=== PATIENT | female | born 1990 | race Caucasian/White ===

== ENCOUNTER 2017-01-08 13:35 | Emergency (ER) | payer MEDICAID, OTHER ==
--- NOTE | 2017-01-08 14:11 | ERPHSYRPT ---
- History of Present Illness Time Seen by Provider: 01/08/17 14:06 Source: patient Exam Limitations: no limitations Patient Subjective Stated Complaint: pt c/o vomiting since early sunday along with diarrhea. c/o abd pain in the middle of stomach. Triage Nursing Assessment: pt alert x 3. respirations even and unlabored. skin is pale warm and dry. abd is soft and tender to touch. bowel sounds present in all four quads. Physician History: The patient is a 26-year-old female with her complaining of nausea, vomiting, and diarrhea for 2 days. She has vomited at least a dozen times each day. The bowel movements are nothing but water. She is lightheaded. Her past medical history is unremarkable. Her last menstrual period was one month ago. Timing/Duration: day(s) (2) Severity: moderate Modifying Factors: Improves With: nothing Associated Symptoms: nausea, vomiting Allergies/Adverse Reactions: No Known Drug Allergies Allergy (Unverified 06/04/13 10:11) Hx Tetanus, Diphtheria Vaccination/Date Given: No Hx Influenza Vaccination/Date Given: No Hx Pneumococcal Vaccination/Date Given: No Immunizations Up to Date: Yes - Review of Systems Constitutional: Weakness Eyes: No Symptoms Ears, Nose, & Throat: No Symptoms Respiratory: No Cough, No Dyspnea Cardiac: No Chest Pain, No Edema, No Syncope Abdominal/Gastrointestinal: Nausea, Vomiting, Diarrhea Genitourinary Symptoms: No Dysuria Musculoskeletal: No Back Pain, No Neck Pain Skin: No Rash Neurological: No Dizziness, No Focal Weakness, No Sensory Changes Psychological: No Symptoms Endocrine: No Symptoms Hematologic/Lymphatic: No Symptoms Immunological/Allergic: No Symptoms All Other Systems: Reviewed and Negative - Past Medical History Pertinent Past Medical History: Yes Neurological History: Seizures ENT History: No Pertinent History Cardiac History: No Pertinent History Respiratory History: Asthma Endocrine Medical History: No Pertinent History Musculoskeletal History: No Pertinent History GI Medical History: No Pertinent History History: No Pertinent History Psycho-Social History: No Pertinent History Female Reproductive Disorders: No Pertinent History 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 - Past Surgical History Past Surgical History: Yes Neuro Surgical History: No Pertinent History Cardiac: No Pertinent History Respiratory: No Pertinent History Gastrointestinal: No Pertinent History Genitourinary: No Pertinent History Musculoskeletal: Orthopedic Surgery Female Surgical History: No Pertinent History Other Surgical History: right arm was broke when she was 4 - Social History Smoking Status: Current every day smoker How long have you smoked: 10 Exposure to second hand smoke: Yes Drug Use: none Patient Lives Alone: No - Female History Hx Last Menstrual Period: 12/09/2016 Hx Now: No - Nursing Vital Signs Nursing Vital Signs: Initial Vital Signs Temperature 97.3 F 01/08/17 13:35 Pulse Rate 103 H 01/08/17 13:35 Respiratory Rate 20 01/08/17 13:35 Blood Pressure 137/28 01/08/17 13:35 O2 Sat by Pulse Oximetry 99 01/08/17 13:35 Pain Scale Pain Intensity 2 - Physical Exam General Appearance: mild distress Eye Exam: PERRL/EOMI, eyes nml inspection Ears, Nose, Throat Exam: normal ENT inspection, TMs normal, pharynx normal, moist mucous membranes Neck Exam: normal inspection, non-tender, supple, full range of motion Respiratory Exam: normal breath sounds, lungs clear, No respiratory distress Cardiovascular Exam: regular rate/rhythm, normal heart sounds, normal peripheral pulses Gastrointestinal/Abdomen Exam: soft, normal bowel sounds, No tenderness, No mass Pelvic Exam: not done Rectal Exam: not done Back Exam: normal inspection, normal range of motion, No CVA tenderness, No vertebral tenderness Extremity Exam: normal inspection, normal range of motion, pelvis stable Neurologic Exam: alert, oriented x 3, cooperative, normal mood/affect, nml cerebellar function, nml station & gait, sensation nml, No motor deficits Skin Exam: normal color, warm, dry, No rash Lymphatic Exam: No adenopathy SpO2 Interpretation: normal SpO2: 99 Oxygen Delivery: Room Air - Radiology Exams Abdomen X-ray Interpretation: Teleradiologist Report, Negative (per DR Cerrato) Ordered Tests: Active Orders 24 hr Category Date Time Status IV Insertion STAT Care 01/08/17 14:13 Active OBSTR/ACUTE ABDOMEN SERIES Stat Exams 01/08/17 14:14 Completed BMP Stat Lab 01/08/17 13:50 Completed CBC W DIFF Stat Lab 01/08/17 13:50 Completed HCG QUALITATIVE,SERUM Stat Lab 01/08/17 13:50 Completed Lactic Acid Stat Lab 01/08/17 14:13 Completed Medication Summary Discontinued Medications Generic Name Dose Route Start Last Admin Trade Name Freq PRN Reason Stop Dose Admin Sodium Chloride 1,000 mls @ 999 mls/hr 01/08/17 14:13 08/07/17 14:30 Sodium Chloride 0.9% 1000 Ml IV 01/08/17 15:13 999 mls/hr .Q1H1M STA Administration Sodium Chloride Confirm 01/08/17 14:28 Sodium Chloride 0.9% 1000 Ml Administered 01/08/17 14:29 Dose 1,000 mls @ ud .ROUTE .STK-MED ONE Ondansetron HCl 4 mg 01/08/17 14:13 01/08/17 14:31 Zofran 4 Mg/2 Ml Vial IV 01/08/17 14:14 4 mg STAT ONE Administration Ondansetron HCl Confirm 01/08/17 14:28 Zofran 4 Mg/2 Ml Vial Administered 01/08/17 14:29 Dose 4 mg .ROUTE .STK-MED ONE Lab/Rad Data: Laboratory Result Diagrams 01/08/17 13:50 01/08/17 13:50 Laboratory Results 01/08/17 01/08/17 01/08/17 Range/Units 14:13 13:50 13:50 WBC (4.0-10.5) K/mm3 RBC (4.1-5.4) M/mm3 Hgb (12.0-16.0) gm/dl Hct (35-47) % MCV (78-100) fl MCH (26-32) pg MCHC (32-36) g/dl RDW (11.5-14.0) % Plt Count (150-450) K/mm3 MPV (6-9.5) fl Gran % (36.0-66.0) % Lymphocytes % (24.0-44.0) % Monocytes % (0.0-12.0) % Eosinophils % (0.00-5.0) % Basophils % (0.0-0.4) % Basophils # (0-0.4) Sodium 139 (136-145) mEq/L Potassium 4.1 (3.5-5.1) mEq/L Chloride 102 (98-107) mEq/L Carbon Dioxide 26.7 (21-32) mEq/L Anion Gap 14.4 (5-15) MEQ/L BUN 9 (9-20) mg/dL Creatinine 0.65 (0.55-1.30) mg/dl Estimated GFR > 60 ML/MIN Glucose 107 (70-110) MG/DL Lactic Acid 2.7 H (0.4-2.0) Calcium 8.8 (8.5-10.1) mg/dL Serum , Qual NEGATIVE (Negative) 01/08/17 Range/Units 13:50 WBC 18.6 H (4.0-10.5) K/mm3 RBC 5.04 (4.1-5.4) M/mm3 Hgb 15.7 (12.0-16.0) gm/dl Hct 48.1 H (35-47) % MCV 95.4 (78-100) fl MCH 31.2 (26-32) pg MCHC 32.6 (32-36) g/dl RDW 12.9 (11.5-14.0) % Plt Count 279 (150-450) K/mm3 MPV 10.7 H (6-9.5) fl Gran % 80.2 H (36.0-66.0) % Lymphocytes % 10.1 L (24.0-44.0) % Monocytes % 7.1 (0.0-12.0) % Eosinophils % 2.5 (0.00-5.0) % Basophils % 0.1 (0.0-0.4) % Basophils # 0.01 (0-0.4) Sodium (136-145) mEq/L Potassium (3.5-5.1) mEq/L Chloride (98-107) mEq/L Carbon Dioxide (21-32) mEq/L Anion Gap (5-15) MEQ/L BUN (9-20) mg/dL Creatinine (0.55-1.30) mg/dl Estimated GFR ML/MIN Glucose (70-110) MG/DL Lactic Acid (0.4-2.0) Calcium (8.5-10.1) mg/dL Serum , Qual (Negative) - Progress Progress: improved Counseled pt/family regarding: lab results, diagnosis, rad results - Departure Time of Disposition: 15:36 Departure Disposition: Home Clinical Impression: Gastroenteritis, Dehydration Condition: Stable Critical Care Time: No Additional Instructions: You have gastroenteritis. You were given IV fluids in the ER. You are also given Zofran 4 mg by IV. Take Zofran 4 mg ODT every 6 hours as needed. Stay well hydrated. Follow-up as needed. Prescriptions: Ondansetron [Zofran Odt] 4 mg PO Q6HPRN PRN #10 tab.rapdis PRN Reason: Nausea/Vomiting
[2017-01-08] MEDS ORDERED: Zofran 4 MG/2 ML VIAL IV ONE (14:13)
[2017-01-08] MEDS ORDERED: Sodium Chloride 0.9% 1000 ML 1,000 ML IV STA (14:13)
[2017-01-08] MEDS ORDERED: Sodium Chloride 0.9% 1000 ML 1,000 ML ONE (14:28)
[2017-01-08] MEDS ORDERED: Zofran 4 MG/2 ML VIAL ONE (14:28)
[2017-01-08 14:31] LABS: Lactic Acid 2.7 (0.4-2.0)
[2017-01-08 14:44] LABS: BASOPHIL % 0.1 % (0.0-0.4); Eosinophil % 2.5 % (0.00-5.0); Granulocytes % 80.2 % (36.0-66.0); Lymphocytes % 10.1 % (24.0-44.0); Mean Cell Volume 95.4 fl (78-100); Mean Corpuscular Hemoglobin 31.2 pg (26-32); Mean Platelet Volume 10.7 fl (6-9.5); Monocytes % 7.1 % (0.0-12.0); Platelet Count 279 K/mm3 (150-450); Red Blood Count 5.04 M/mm3 (4.1-5.4); Red Cell Distribution Width 12.9 % (11.5-14.0); White Blood Count 18.6 K/mm3 (4.0-10.5)
[2017-01-08 14:52] LABS: ANION GAP 14.4 MEQ/L (5-15); BLOOD UREA NITROGEN 9 mg/dL (9-20); CHLORIDE 102 mEq/L (98-107); Carbon Dioxide 26.7 mEq/L (21-32); Glucose 107 MG/DL (70-110); Potassium 4.1 mEq/L (3.5-5.1); SODIUM 139 mEq/L (136-145)
[2017-01-08 15:09] VITALS: BP 146/76; PULSE 78
--- NOTE | 2017-01-08 15:30 | XRAY ---
Indication: Nausea, vomiting, and diarrhea. Comparison: None 2 views of the abdomen demonstrates nonspecific nonobstructed bowel gas pattern. No free air. Solid organs and osseous structures unremarkable. Single frontal chest demonstrates normal heart, lungs, and bony thorax. Impression: Nonacute nonobstructed abdomen. Normal 1 view chest.
[2017-01-08 15:38] VITALS: O2SAT 99
== END 2017-01-08 15:53 | disposition home or self-care (01) ==
LOC: ED 13:35
DX: K52.9 Noninfective gastroenteritis and colitis, unspecified (principal); E86.0 Dehydration; R11.2 Nausea with vomiting, unspecified; R19.7 Diarrhea, unspecified; R42 Dizziness and giddiness
CPT/HCPCS: 36000; 36415; 74022; 80048; 83605; 84703; 85025; 96360; 96374; 99284; J2405

== ENCOUNTER → 2017-06-05 | Emergency (ER) | payer SELFPAY | END | disposition left against medical advice (07) | LOC: ED 00:14 | DX: Z53.9 Procedure and treatment not carried out, unspecified reason (principal) ==